=== PATIENT | male | born 1980 | race Caucasian/White ===

== ENCOUNTER 2016-06-18 17:13 | Emergency (ER) | payer SELFPAY ==
[2016-06-18 17:26] VITALS: BP 132/78
--- NOTE | 2016-06-18 17:29 | ER Document Report ---
ED Medical Screen (RME) - General Stated Complaint: RIGHT KNEE PAIN Mode of Arrival: Ambulatory Information source: Patient Notes: Patient presents emergency department with complaints of right knee pain. Right lateral knee is erythematous warm. Patient installs floors for a living.Denies f/v/d. I have greeted and performed a rapid initial assessment of this patient. A comprehensive ED assessment and evaluation of the patient, analysis of test results and completion of the medical decision making process will be conducted by additional ED providers.
[2016-06-18] MEDS ORDERED: SULFAMETHOXAZOLE/TRIMETHOPRIM 800-160 MG TABLET PO ONE (18:45)
[2016-06-18] MEDS ORDERED: CEPHALEXIN 500 MG CAPSULE PO ONE (18:45)
--- NOTE | 2016-06-18 18:47 | ER Document Report ---
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 States that this pain has been getting progressively worse and does describe it as a severe, constant, stabbing pain. States touching the area worsens the pain. Nothing improves the pain. States he has squeezed the area and purulent drainage has been expressed but the pain does not go away. States this feels similar to abscesses that he has had in the past. He has not seen his primary care doctor regarding today's concerns. He has not had any fever or constitutional symptoms at home. Denies any pain or difficulty with ranging the right knee. TRAVEL OUTSIDE OF THE [place] IN LAST 30 DAYS: No Past Medical History - General Information source: Patient - Social History Smoking Status: Current Every Day Smoker Chew tobacco use (# tins/day): No Frequency of alcohol use: None Drug Abuse: None Family History: Reviewed & Not Pertinent Patient has suicidal ideation: No Patient has homicidal ideation: No Renal/ Medical History: Denies: Hx Peritoneal Dialysis Review of Systems - Review of Systems Notes: Constitutional: Negative for fever. HENT: Negative for sore throat. Eyes: Negative for visual changes. Cardiovascular: Negative for chest pain. Respiratory: Negative for shortness of breath. Gastrointestinal: Negative for abdominal pain, vomiting or diarrhea. Genitourinary: Negative for dysuria. Musculoskeletal: Negative for back pain. Skin: Positive for rash. Neurological: Negative for headaches, weakness or numbness. 10 point ROS negative except as marked above and in HPI. Physical Exam - Vital signs Vitals: Temp Pulse Resp BP Pulse Ox 97.5 F 83 20 132/78 H 100 06/18/16 17:24 06/18/16 17:24 06/18/16 17:24 06/18/16 17:24 06/18/16 17:24 Interpretation: Normal Notes: PHYSICAL EXAMINATION: GENERAL: Well-appearing, well-nourished and in no acute distress. HEAD: Atraumatic, normocephalic. EYES: sclera anicteric, conjunctiva are normal. ENT: Moist mucous membranes. NECK: Normal range of motion LUNGS: Normal work of breathing HEART: 2+ radial pulses bilaterally EXTREMITIES: no pitting or edema. No cyanosis. Patient is able to range the right knee completely with full flexion to 90 as well as complete extension. NEUROLOGICAL: No focal neurological deficits. Moves all extremities spontaneously and on command. PSYCH: Normal mood, normal affect. SKIN: Warm, Dry, normal turgor, there is a small pustule over the medial aspect of the patella with a 2 x 3 cm area surrounding erythema Course - Re-evaluation Re-evalutation: 06/18/16 18:46 Patient presents with a small, superficial abscess over the medial right knee. No evidence of a septic joint on exam and there is no actual swelling or inflammatory change of the joint itself. Patient is able to range the knee to full extension and flexion to 90 without pain or difficulty. Likewise I do not suspect an acute gout attack. Most consistent with a superficial abscess with associated cellulitis. This was incised and drained at the bedside without difficulty with expression approximately 1-2 mL of purulent material. Patient will be started on TMP SMX and Keflex.At this time will discharge with return precautions and follow-up recommendations. Verbal discharge instructions given a the bedside and opportunity for questions given. Medication warnings reviewed. Patient is in agreement with this plan and has verbalized understanding of return precautions and the need for primary care follow-up in the next 24-72 hours. - Vital Signs Vital signs: Temp Pulse Resp BP Pulse Ox 97.5 F 85 20 132/78 H 100 06/18/16 17:26 06/18/16 17:26 06/18/16 17:26 06/18/16 17:26 06/18/16 17:26 - Diagnostic Test Radiology reviewed: Image reviewed, Reports reviewed Radiology results interpreted by me: 06/19/16 02:24 Right knee: No acute fracture or dislocation Procedures - Incision and Drainage Right Leg Type: Simple Anesthetic type: 1% Lidocaine mL's of anesthetic: 2 Blade size: 11 I&D procedure: Betadine prep applied Incision Method: Incision made by scalpel Amount/type of drainage: 2cc purulent material Discharge - Discharge Clinical Impression: Abscess or cellulitis of knee Condition: Good Disposition: HOME, SELF-CARE Additional Instructions: You were seen for an abscess that required drainage. Please clean this area with soap and water twice daily and apply a topical antibiotic. Dress the area after each cleaning. Please return if you develop fever, vomiting, the pain at the site worsens, you notice spreading redness from the area, or you have any other symptoms that are concerning to you. Prescriptions: Cephalexin Monohydrate [Keflex 500 mg Capsule] 500 mg PO QID #20 capsule Sulfamethoxazole/Trimethoprim [Bactrim Ds Tablet] 2 tab PO BID #20 tablet
== END 2016-06-18 19:10 | disposition home or self-care (01) ==
LOC: ER 17:13
PROC: 0H9KXZZ Drainage of Right Lower Leg Skin, External Approach (ICD-10-PCS; principal; 2016-06-18)
DX: L02.415 Cutaneous abscess of right lower limb (principal); M25.561 Pain in right knee; F17.200 Nicotine dependence, unspecified, uncomplicated; Z86.14 Personal history of Methicillin resistant Staphylococcus aureus infection
CPT/HCPCS: 99283

== ENCOUNTER 2016-09-22 13:22 | Emergency (ER) | payer SELFPAY ==
[2016-09-22] MEDS ORDERED: SULFAMETHOXAZOLE/TRIMETHOPRIM 800-160 MG TABLET PO ONE (14:24)
[2016-09-22] MEDS ORDERED: CEPHALEXIN 500 MG CAPSULE PO ONE (14:24)
--- NOTE | 2016-09-22 14:24 | ER Document Report ---
HPI - HPI Patient complains to provider of: Abscess Onset: Other - 3 days Onset/Duration: Persistent Quality of pain: Achy Pain Level: 4 Context: Patient complains of developing abscess to left knee, left forearm and left eyelid. Patient states he has had problems with abscesses in the past although does not know if he has been diagnosed with MRSA. Patient denies any fever or history of diabetes. Patient denies any history of IV drug abuse. Associated Symptoms: Other - Skin abscess. denies: Fever Exacerbated by: Denies Relieved by: Denies Similar symptoms previously: Yes Recently seen / treated by doctor: No - ROS ROS below otherwise negative: Yes Systems Reviewed and Negative: Yes All other systems reviewed and negative - CONSTITUTIONAL Constitutional: DENIES: Fever, Chills - EENT EENT: REPORTS: Eye problems - GASTROINTESTINAL Gastrointestinal: DENIES: Nausea, Patient vomiting - DERM Skin Color: Erythema Notes: abscess Past Medical History - General Information source: Patient - Social History Smoking Status: Never Smoker Chew tobacco use (# tins/day): No Frequency of alcohol use: None Drug Abuse: None Lives with: Family Family History: Reviewed & Not Pertinent Patient has suicidal ideation: No Patient has homicidal ideation: No Neurological Medical History: Reports: Other - vertigo Renal/ Medical History: Denies: Hx Peritoneal Dialysis Past Surgical History: Reports: Hx Tonsillectomy - Immunizations Hx Diphtheria, Pertussis, Tetanus Vaccination: Yes - within past 6 months Vertical Provider Document - CONSTITUTIONAL Agree With Documented VS: Yes Exam Limitations: No Limitations General Appearance: WD/WN, No Apparent Distress - INFECTION CONTROL TRAVEL OUTSIDE OF THE [place] IN LAST 30 DAYS: No - HEENT HEENT: Atraumatic, Normocephalic Notes: pustular lesion to left medial inner canthus of eye, no for orbital cellulitis or preseptal cellulitis - NECK Neck: Normal Inspection, Supple - RESPIRATORY Respiratory: Breath Sounds Normal, No Respiratory Distress O2 Sat by Pulse Oximetry: 99 - CARDIOVASCULAR Cardiovascular: Regular Rate, Regular Rhythm - BACK Back: Normal Inspection - MUSCULOSKELETAL/EXTREMETIES Musculoskeletal/Extremeties: MAEW - NEURO Level of Consciousness: Awake, Alert, Appropriate Motor/Sensory: No Motor Deficit - DERM Integumentary: Warm, Dry, Abscess - Patient with abscess to left lateral knee area with overlying pustular lesion. Skin over area erythematous concerning for cellulitis. Patient with full range of knee joint without guarding. Patient with an additional tender indurated, erythematous lesion concerning for developing abscess to medial aspect of middle third of left forearm. Course - Vital Signs Vital signs: Temp Pulse Resp BP Pulse Ox 98.0 F 81 20 127/73 H 99 09/22/16 13:31 09/22/16 13:31 09/22/16 13:31 09/22/16 13:31 09/22/16 13:31 Procedures - Incision and Drainage Left Knee Type: Simple Anesthetic type: 1% Lidocaine I&D procedure: Other - chlorhexadine Incision Method: Incision made by scalpel Amount/type of drainage: small amount of purulent drainage Left Face Type: Simple Incision Method: Incision made with needle Amount/type of drainage: scant amount of purulent drainage Notes: 09/22/16 16:37 pustule de roofed to medial inner canthus Discharge - Discharge Clinical Impression: Abscess Cellulitis Qualifiers: Site of cellulitis: extremity Site of cellulitis of extremity: lower extremity Laterality: left Qualified Code(s): L03.116 - Cellulitis of left lower limb Condition: Stable Disposition: HOME, SELF-CARE Instructions: Abscess ([facility]), Oral Narcotic Medication ([facility]), Trimethoprim- Sulfa ([facility]), Cephalexin ([facility]), Post Incision and Drainage Additional Instructions: Return immediately for any new or worsening symptoms Followup with your primary care provider, call tomorrow to make a followup appointment culture is pending, we will call if you need different treatment Prescriptions: Cephalexin Monohydrate [Keflex 500 mg Capsule] 500 mg PO Q6H 5 Days Hydrocodone/Acetaminophen [[place] 5-325 Tablet] 1 each PO Q4 PRN #15 tablet PRN Reason: Mupirocin [Bactroban 2% Ointment 22 gm] 1 applic TP TID #22 gm Sulfamethoxazole/Trimethoprim [Bactrim Ds Tablet] 1 each PO BID #20 tablet Forms: Return to Work Referrals: [facility] [Provider Group] - Follow up as needed
[2016-09-22 17:04] VITALS: BP 118/76
== END 2016-09-22 17:03 | disposition home or self-care (01) ==
LOC: ER 13:22
PROC: 0H91XZZ Drainage of Face Skin, External Approach (ICD-10-PCS; principal; 2016-09-22)
PROC: 0H9LXZZ Drainage of Left Lower Leg Skin, External Approach (ICD-10-PCS; 2016-09-22)
DX: L02.416 Cutaneous abscess of left lower limb (principal); L02.414 Cutaneous abscess of left upper limb; L03.116 Cellulitis of left lower limb; H00.036 Abscess of eyelid left eye, unspecified eyelid
CPT/HCPCS: 87070; 87077; 87186; 87205; 99283

== ENCOUNTER 2016-09-25 16:38 | Emergency (ER) | payer SELFPAY ==
[2016-09-25] MEDS ORDERED: CLINDAMYCIN 600 MG/D5W RTU 50 ML IV ONE (18:01)
--- NOTE | 2016-09-25 18:08 | ER Document Report ---
HPI - HPI Patient complains to provider of: Red streaks on left leg Onset: This morning Onset/Duration: Sudden Quality of pain: Achy Severity: Moderate Pain Level: 4 Context: Patient states he was put on antibiotics 2 days ago for MRSA infection to left leg and left forearm. Noticed some red streaks going up his thigh this morning. States he has been taking antibiotics as prescribed. Associated Symptoms: None Exacerbated by: Denies Relieved by: Denies Similar symptoms previously: Yes Recently seen / treated by doctor: Yes - ROS ROS below otherwise negative: Yes Systems Reviewed and Negative: Yes All other systems reviewed and negative - CONSTITUTIONAL Constitutional: DENIES: Fever - EENT EENT: DENIES: Congestion - NEURO Neurology: DENIES: Headache - CARDIOVASCULAR Cardiovascular: DENIES: Chest pain - RESPIRATORY Respiratory: DENIES: Trouble Breathing - GASTROINTESTINAL Gastrointestinal: DENIES: Abdominal Pain - URINARY Urinary: DENIES: Dysuria - MUSCULOSKELETAL Musculoskeletal: REPORTS: Extremity pain - DERM Skin Color: Erythema - left thigh Skin Problems: Rash - left Forearm and left knee Past Medical History - General Information source: Patient - Social History Smoking Status: Unknown if Ever Smoked Frequency of alcohol use: None Drug Abuse: None Lives with: Family Family History: Reviewed & Not Pertinent Infectious Medical History: Reports: Hx MRSA Past Surgical History: Reports: Hx Tonsillectomy - Immunizations Hx Diphtheria, Pertussis, Tetanus Vaccination: Yes - within past 6 months Vertical Provider Document - CONSTITUTIONAL Agree With Documented VS: Yes Exam Limitations: No Limitations General Appearance: WD/WN, No Apparent Distress - INFECTION CONTROL TRAVEL OUTSIDE OF THE [place] IN LAST 30 DAYS: No - HEENT HEENT: Atraumatic, Normocephalic - RESPIRATORY Respiratory: Breath Sounds Normal, No Respiratory Distress O2 Sat by Pulse Oximetry: 98 - CARDIOVASCULAR Cardiovascular: Regular Rate, Regular Rhythm - MUSCULOSKELETAL/EXTREMETIES Musculoskeletal/Extremeties: MAEW - NEURO Level of Consciousness: Awake, Alert, Appropriate - DERM Integumentary: Warm, Dry, Abscess - Hard, Red nodule about 1 inch in diameter noted to left forearm. 3 in area of redness to left knee. Small scab in center , both the areas nonfluctuant. Faint red streaking noted going up left anterior thigh. Course - Re-evaluation Re-evalutation: 09/25/16 19:33 IV antibiotics given in ER, patient tolerated without any problems. Red streaks on leg will be marked with skin marker so that patient can be reevaluated first thing morning. 09/25/16 19:43 - Vital Signs Vital signs: Temp Pulse Resp BP Pulse Ox 98.2 F 83 18 140/74 H 98 09/25/16 17:07 09/25/16 17:07 09/25/16 17:07 09/25/16 17:07 09/25/16 17:07 Discharge - Discharge Clinical Impression: Cellulitis of left leg without foot, Skin lesion, History of MRSA infection Condition: Good Disposition: HOME, SELF-CARE Additional Instructions: Continue oral antibiotics as previously prescribed warm Compresses to skin lesions on leg and arm tylenol or Motrin as needed for pain Return first thing morning for recheck, it may take 2 days before you start seeing improvement in streaking return Earlier if any further problems. Forms: Return to Work
[2016-09-25 19:54] VITALS: BP 123/74
== END 2016-09-25 19:54 | disposition home or self-care (01) ==
LOC: ER 16:38
DX: L03.116 Cellulitis of left lower limb (principal); B95.62 Methicillin resistant Staphylococcus aureus infection as the cause of diseases classified elsewhere; L98.9 Disorder of the skin and subcutaneous tissue, unspecified
CPT/HCPCS: 96365; 99283